=== PATIENT | male | born 1970 | race Caucasian/White ===

== ENCOUNTER 2017-10-11 11:58 | Emergency (ER) | payer BC ==
[~2017-10-11 11:58] MED LIST: Iopamidol 370 76% 100 ML VIAL ONE
[2017-10-11 12:48] LABS: #Basophils 0.1 thou/uL (0.0-0.2); #Eosinphils 0.1 thou/uL (0.0-0.7); #Lymphocytes 1.8 thou/uL (1.20-3.40); #Monocytes 0.4 thou/uL (0.11-0.59); #Neutrophils 3.1 thou/uL (1.40-6.50); %Basophils 1.5 % (0.0-1.0); %Eosinophils 2.5 % (0.0-10.0); %Lymphocytes 32.4 % (21.0-51.0); %Monocytes 6.6 % (0.0-10.0); %Neutrophils 57.2 % (42.0-75.0); Hemoglobin 15.1 g/dL (14.0-18.0); Mean Corpuscular HGB CONC 36.2 g/dL (32.0-36.0); Mean Corpuscular Hemoglobin 34.8 pg (27.0-31.0); Mean Corpuscular Volume 96.1 fL (78.0-98.0); Mean Platelet Volume 7.7 fL (7.4-10.4); Platelet Count 247 thou/uL (130-400); RBC Distribution Width 11.5 % (11.5-14.5); Red Blood Cell (RBC) Count 4.33 mill/uL (4.70-6.10); White Blood Cell (WBC) Count 5.4 thou/uL (4.8-10.8)
[2017-10-11 13:05] LABS: ALT (SGPT) 108 U/L (8-55); AST (SGOT) 51 U/L (5-34); Albumin 4.8 g/dL (3.5-5.0); Alkaline Phosphatase 71 U/L (40-150); Anion Gap 15 mmol/L (10-20); BUN (Urea Nitrogen) 18 mg/dL (8.9-20.6); Bilirubin, Total 0.6 mg/dL (0.2-1.2); Calc. Creatinine Clearance 0 mL/min (70-130); Calcium 9.7 mg/dL (7.8-10.44); Carbon Dioxide 23 mmol/L (22-29); Chloride 106 mmol/L (98-107); Estimated GFR-MDRD 75; Globulin 2.8 g/dL (2.4-3.5); Glucose 99 mg/dL (70-105); Potassium 4.5 mmol/L (3.5-5.1); Protein, Total 7.6 g/dL (6.0-8.3); Sodium 139 mmol/L (136-145)
[2017-10-11 13:06] LABS: CKMB 2.9 ng/mL (0-6.6); Troponin I Less than 0.010 ng/mL (< 0.028)
--- NOTE | 2017-10-11 13:26 | RAD ---
RADIOGRAPH CHEST 1 VIEW: HISTORY: A 47-year-old male with chest pain. FINDINGS: There are no air space densities, pulmonary edema, pneumothorax, or cardiomegaly. The lateral costop hrenic angles are sharp. IMPRESSION: No acute cardiopulmonary findings. jn [] POS: [facility]
[2017-10-11 13:48] LABS: CK (CPK) 229 U/L (30-200); Lipase 28 U/L (8-78)
[2017-10-11] MEDS ORDERED: Nitroglycerin 2% Ointment 1 INCH/1 GM Packet ONE (14:33)
--- NOTE | 2017-10-11 15:44 | CT ---
CT PULMONARY ANGIOGRAM WITH IV CONTRAST AND 3D POSTPROCESSING: Date: 10/11/17 HISTORY: Chest pain, elevated D-Dimer. FINDINGS: The opacification of the pulmonary arterial vasculature is suboptimal with attenuation value of 165 H [place] units in the main pulmonary artery. This makes this exam nondiagnostic for PE. The thoracic aorta is well opacified without aneurysm or dissection. No pleural or pericardial effusi ons are seen. No pneumothoraces, lobar consolidation, or lung masses are identified. There are mild d egenerative changes in the spine. Upper abdominal tomograms demonstrate fatty infiltration of the ezra er. IMPRESSION: 1. Exam nondiagnostic for PE. 2. No evidence of thoracic aortic aneurysm or dissection. POS: [facility]
[2017-10-11 16:46] LABS: Troponin I Less than 0.010 ng/mL (< 0.028)
== END 2017-10-11 17:15 | disposition home or self-care (01) ==
LOC: ERS 11:58
DX: R07.2 Precordial pain (principal); K21.9 Gastro-esophageal reflux disease without esophagitis; Z79.899 Other long term (current) drug therapy
CPT/HCPCS: 36415; 71045; 71275; 80053; 82553; 83690; 84484; 85025; 85379; 93005

== ENCOUNTER 2019-05-05 16:38 | Outpatient (CLI) | payer BC ==
--- NOTE | 2019-05-05 17:06 | RAD ---
XR Cerv Sp Ap Lat STANDARD History: Paresthesias. Pain Comparison: None. Findings: Mild degenerative disc space height loss at C4/C5 and C5/C6. No fracture. No malalignment. No listhesis. Moderate narrowing of the atlantodental interval. The open-mouth odontoid view is unremarkable. Impression: Mild degenerative changes without fracture, malalignment, or listhesis.
== END 2019-05-05 16:39 | disposition home or self-care (01) ==
LOC: SCSRAD 16:38
PROVIDERS: ATTEND Nurse Practitioner Family
DX: R20.2 Paresthesia of skin (principal); M47.812 Spondylosis without myelopathy or radiculopathy, cervical region
CPT/HCPCS: 72040